=== PATIENT | female | born 1985 | race Caucasian/White ===

== ENCOUNTER 2019-09-05 14:11 | Emergency (ER) | payer MEDICAID, SELFPAY ==
[2019-09-05 14:12] VITALS: BP 134/84; PULSE 116; RESP 15; TEMP 37.2; O2SAT 97; BMI 36.8
[2019-09-05 14:21] VITALS: TEMP 37.3
--- NOTE | 2019-09-05 14:28 | RAD_ITS ---
STUDY: X-RAY CHEST REASON FOR EXAM: Female, 34 years old. COUGH TECHNIQUE: PA and lateral views of the chest. COMPARISON: None. FINDINGS: The right lung clear and moderate expanded. Ill-defined pneumonic infiltrate in the left upper lobe. There is no demonstrated pleural abnormality. Normal size heart. Normal mediastinum and khai. Normal visualized pulmonary arteries. Normal visualized aortic arch and descending thoracic aorta. There are multilevel mild degenerative changes of the visualized thoracic spine and a mild lower thoracic levoscoliosis. Normal visualized ribs, clavicles, and shoulders. Surgical clips of prior cholecystectomy project in the right upper quadrant of the abdomen. RAD/Chest PA and Lateral IMPRESSION: Left upper lobe pneumonic infiltrate. Electronically Signed: Santo Negron MD at 15:03 EST , Service support ,
--- NOTE | 2019-09-05 14:42 | ED.VISSUMM ---
- ER Visit Summary Date of Service: 09/05/19 Chief Complaint: [Cough and fever] History of Present Illness: The patient is a 34 F [resents to the emergency department with complaint of symptoms that started yesterday. Patient states that she thinks she started getting sick 3 or 4 days ago but the cough really became worse with increasing shortness of breath since yesterday. Patient bringing up some green sputum at times. Patient also has post tussive emesis due to the phlegm that she is bringing up. She does describe some fatigue. She had some mild sore throat 3 days ago but that is mostly resolved currently. She denies any ear pain. Patient did have fever yesterday up to 1013 at home. She denies any sick contacts. She did get her flu vaccine this year.] Physical Examination: [HEENT-PERRLA, EOMI. Cranial nerves II through XII grossly intact. TMs clear. Mucous membranes moist. No adenopathy. No pharyngeal erythema. Uvula midline. No trismus on exam. Cardiovascular-regular rate and rhythm without murmur or ectopy Lungs-patient has good aeration bilaterally. Patient has few faint expiratory wheezes bilaterally. No accessory muscle use or retractions noted. Abdomen-normoactive bowel sounds, soft, nontender, no rebound or rigidity, no peritoneal signs. Extremities-intact ?4, normal range of motion, normal pulses, atraumatic] Test Results: [Chest x-ray shows left upper lobe pneumonia. Influenza screen pending.] Emergency Department Course and Treatment: [He was given a DuoNeb aerosol. Patient started on Levaquin p.o. 750 mg.] Treatment Plan: [We will be treated with Levaquin as well as Tessalon Perles and will dispense an albuterol MDI] Disposition: [Home in stable condition. Patient advised to return if increasing shortness of breath or condition should worsen anyway. Patient to follow-up with primary care physician within next 3 to 5 days.] Impression: Pneumonia left upper [id number]] This note was generated with legalPADation software. It may contain incorrect words, spelling, and punctuation that were not noted in review of the chart prior to signing ED Disposition - Plan for ED Patient: Referrals: [facility] Doctor,Out of [NON-STAFF] -
[2019-09-05 15:13] VITALS: PULSE 80; RESP 16
--- NOTE | 2019-09-05 15:14 | DCINST.ED_ITS ---
ED Disposition - Plan for ED Patient: Instructions: PNEUMONIA (Adult) Prescriptions: Levofloxacin [Levaquin] 750 mg PO DAILY #6 tab Transmission Status: Pending to [id number] Benzonatate [Tessalon Perle] 200 mg PO TID PRN PRN #20 cap PRN Reason: Cough Transmission Status: Pending to [id number] Referrals: [facility] Doctor,Out of [NON-STAFF] - 3-5 Days
--- NOTE | 2019-09-05 15:14 | ED.DEP ---
ED Disposition - Plan for ED Patient: Instructions: PNEUMONIA (Adult) Prescriptions: Levofloxacin [Levaquin] 750 mg PO DAILY #6 tab Transmission Status: Pending to [id number] Benzonatate [Tessalon Perle] 200 mg PO TID PRN PRN #20 cap PRN Reason: Cough Transmission Status: Pending to [id number] Referrals: [facility] Doctor,Out of [NON-STAFF] - 3-5 Days
[2019-09-05] MEDS: levoFLOXacin 750 MG Tablet PO (15:21)
[2019-09-05] MEDS: Ipratropium/Albuterol Sulfate 3 ML AMPUL.NEB INHALATION (15:22)
[2019-09-05 15:23] VITALS: BP 130/73; PULSE 106; RESP 18; O2SAT 97
== END 2019-09-05 15:44 | disposition home or self-care (01) ==
LOC: ED 14:48
PROVIDERS: Emergency Provider Emergency Medicine
DX: J18.9 Pneumonia, unspecified organism (principal)
CPT/HCPCS: 71046; 87804; 94640; 94664; 99283